=== PATIENT | female | born 1955 | race Caucasian/White ===

== ENCOUNTER 2019-06-05 12:57 | Outpatient (CLI) | payer SELFPAY ==
--- NOTE | 2020-08-13 | DI.MAMMO_ITS ---
EXAM: MG MAMMO SCREEN CALL BACK UNI CLINICAL HISTORY: TEST. TECHNIQUE: Bilateral full field digital CC and MLO mammographic images were obtained with 3D tomosyn thesis and utilizing computer aided detection (CAD). COMPARISON: Prior mammograms dating back to 2010, the most recent being . FINDINGS: There are no new spiculated masses nor malignant appearing microcalcification groups. There is no significant architectural distortion nor skin thickening-retraction. Test test IMPRESSION: No radiographic evidence of malignancy. test BI-RADS Category 1 - Negative Breast Density - Category A - Almost entirely fatty Breast density Category C or D implies that the patient has dense breast tissue. Dense breast tissue can make it harder to find cancer on a mammogram. Dense breast tissue is also associated with an incr eased risk of breast cancer. This information about the result of the mammogram report was provided to the patient to raise their awareness. Use this report when you speak with the patient about their risks for breast cancer, which includes their family history. At that time, you may recommend additional screening tests (Ultrasoun d or MRI) as these tests may add significant information. A negative radiographic report should not delay biopsy if a dominant or clinically suspicious mass is present. Up to ten percent of cancers are not identified on mammography. A negative report may reinforce clinical impression. Adenosis and dense breasts may obscure an underlying neoplasm. False positive reports average 6 to 10%. Patient will receive a letter notifying them of these results.
--- NOTE | 2020-09-19 11:45 | DI.US_ITS ---
Exam(s) US BREAST RT LIMITED MG MAMMO DIAGNOSTIC BI EXAM: US BREAST RT LIMITED CLINICAL HISTORY: TEST TECHNIQUE: Ultrasound performed using standard protocol. COMPARISON: No exams were available for comparison FINDINGS: Testtest IMPRESSION: BI-RADS Cat 1 - Negative DATA REPOSITORY:
== END 2019-06-05 13:17 ==
DX: R69 Illness, unspecified (principal)

== ENCOUNTER 2019-06-21 09:56 | Emergency (ER) | payer SELFPAY ==
--- NOTE | 2019-11-21 09:45 | RT.EKG_ITS ---
APPROVED REPORT <Conclusion> Sinus rhythm...normal P axis, V-rate 60- 99
--- NOTE | 2020-07-05 10:19 | PDOC.MHCN ---
Date of service: 07/05/20 Time of Service: 10:20 Mental Health Crisis Note Presenting Issue How did you arrive at the ED and why did you come: Arrived by ambulance due to suicidal ideation Precipitating Factors Reporting to have suicidal ideation with a plan. Signature Clinician's Name/Title: Praveena Aguilar [employer]
== END 2019-06-21 10:09 ==
LOC: ER 10:03
DX: R69 Illness, unspecified (principal)

== ENCOUNTER 2021-08-01 04:35 | Outpatient (CLI) | payer SELFPAY | END 2021-08-01 04:36 | disposition home or self-care (01) | LOC: LBO 04:35 ==